=== PATIENT | female | born 1995 | race Caucasian/White ===

== ENCOUNTER 2017-02-27 00:50 | Emergency (ER) | payer MEDICAID ==
--- NOTE | 2017-02-27 01:36 | PD ---
HPI Chief Complaint Contractions Date Seen: February 27, 2017 Travel History International Travel<30 Days: No Contact w/Intl Traveler<30Days: No Known Affected Area: No History of Present Illness HPI This patient is 22-year-old white female at 39 weeks presents complaining of contractions, denies bleeding or ruptured membranes. Baby is active. heart tracing is reactive she is vito every 2-[address] Yancey for care. Para: 1 : 2 History Past Medical History Narrative Medical Asthma Obstetric History Obstetric History Patient was induced with her last baby for PIH and had to push for 3 hours but she did deliver Social History Alcohol Use: No Tobacco Use: No Substance Abuse: No Review of Systems General / Constitutional: No: Fever, Weight Gain, Chills, Other Eyes: No: Diploplia, Blurred Vision, Visual changes, Pain, Photophobia HENT: No: Headaches, Vertigo, Lightheadedness Cardiovascular: No: Irregular Rhythm, Chest Pain or Discomfort, Palpitations, Tachycardia, Syncope, Varicosities, Edema, Cyanosis Respiratory: No: Cough, Short of Breath, Other Gastrointestinal: No: Nausea, Vomiting, Diarrhea Genitourinary: No: Decreased Urinary Output, Oliguria Musculoskeletal: No: Limited ROM, Weakness, Cramping, Edema, Pain Skin: No Rash, No Itching, No Dryness, No Lumps, No Change in Pigmentation, No Change in Nails, No Alopecia, No Lesions Neurologic: No: Weakness, Dizziness, Syncope, Focal Abnormalities, Coordination Problem, Headache, Slurred Speech, Seizures Psychiatric: No: Depression, Suicidal Ideations, Homicidal Ideation Endocrine: No: Heat Intolerance, Cold Intolerance, Polydipsia, Polyuria, Other Physical Exam Narrative GENERAL: Well-nourished, well-developed patient. SKIN: Warm and dry. HEAD: Normocephalic and atraumatic. EYES: No scleral icterus. No injection or drainage. ENT: No nasal drainage noted. Mucous membranes pink. Airway patent. NECK: Supple, trachea midline. No JVD. CARDIOVASCULAR: Regular rate and rhythm without murmurs, gallops, or rubs. RESPIRATORY: Breath sounds equal bilaterally. No accessory muscle use. BREASTS: Bilateral exam showed no masses , no retractions, no nipple discharge. ABDOMEN/GI: Abdomen soft, non-tender, bowel sounds present, no rebound, no guarding Gravid to [39-] weeks size Fundal Height: [39-] GENITOURINARY: External Genitalia: intact and normal in appearance BUS glands: [-] Cervix: [-] Dilatation: [3-] Effacement: [50-] Station: [-2] Presentation: [-vtx] Membranes: [intact ] Uterine Contractions: [q 3 min-] FHT's: Category: [1-] Baseline: [-144] Reactive: [-yes] Variability: [-mod] Decels: [none-] EXTREMITIES: No cyanosis or edema. BACK: Nontender without obvious deformity. No CVA tenderness. NEUROLOGICAL: Awake and alert. Motor and sensory grossly within normal limits. Five out of 5 muscle strength in all muscle groups. Normal speech. MDM Interpretation(s) This patient is 22-year-old white female at 39 weeks presents complaining contractions. She denies bleeding or ruptured membranes. heart rate tracing is reactive and she is vito every 3 minutes. Patient states she was in the office 4 days ago was 3 cm at that time. Denies she is still 3 cm 50 % efface and -2 vertex presentation so apparently no significant cervical change with these contractions so far Plan Plan the patient IM pain medication and vertigo home to rest and return when and if these contractions worsen. Or for water breaks or any bleeding of significance occurs Diagnosis Diagnosis: Primary Impression: False labor after 37 weeks of gestation without delivery Disposition: 01 DISCHARGE HOME Condition: Stable Neal Jo II, MD February 27, 2017 01:36
== END 2017-02-27 02:10 | disposition home or self-care (01) ==
LOC: HOBED 00:50
DX: O47.9 False labor, unspecified (principal); Z3A.37 37 weeks gestation of pregnancy
CPT/HCPCS: 96372; J3010

== ENCOUNTER 2017-02-28 10:55 | Inpatient (IN) | payer MEDICAID ==
[2017-02-28] VITALS (101 sets, daily range): BP systolic 60–158; BP diastolic 20–115; PULSE 74–171; RESP 17–18; TEMP 97.4–98.3; O2SAT 99–100
[2017-02-28] MEDS ORDERED: LACTATED RINGER'S 1000 ML INJ 1,000 ML IV PRN (11:23)
[2017-02-28] MEDS ORDERED: LIDOCAINE HCL 1% 50 ML VIAL INFIL PRN (11:30)
[2017-02-28] MEDS ORDERED: SODIUM CHLORID 0.9% 500 ML INJ 500 ML IV PRN (11:30)
[2017-02-28] MEDS ORDERED: LIDOCAINE HCL 1% 50 ML VIAL I-DERMAL PRN (11:30)
[2017-02-28] MEDS ORDERED: MINERAL OIL 10 ML VIAL TOPICAL PRN (11:30)
[2017-02-28] MEDS ORDERED: CITRIC ACID-SODIUM CITRATE LIQ 30 ML UDC PO SCH ×2 (11:30→19:45)
[2017-02-28] MEDS ORDERED: OXYTOCIN 30 UNITS-500ML PREMIX 500 ML IV SCH (11:30)
[2017-02-28] MEDS ORDERED: OXYTOCIN 30 UNITS-500ML PREMIX 500 ML IV ONE ×2 (11:30→20:45)
[2017-02-28] MEDS ORDERED: ONDANSETRON HCL 4 MG/2 ML VIAL IV PRN (11:30)
[2017-02-28] MEDS ORDERED: SODIUM CHLOR 0.9% 1000 ML INJ 1,000 ML IV PRN (11:43)
--- NOTE | 2017-02-28 11:47 | HHI.HP ---
HPI Chief Complaint contractions Date Seen: February 28, 2017 Travel History International Travel<30 Days: No Contact w/Intl Traveler<30Days: No Known Affected Area: No History of Present Illness HPI 22 yo with iup at 39w5d presented to [facility]te visit with c/o regular contractions q 5 min and pelvic pressure. She was evaluated in triage yesterday morning and was 3-4cm dilated. She is feeling good movement, no vb/lof. course c/b Asthma, she has had good control during the h/o pre-eclampsia with G1, normal BP during pnc h/o petit mal seizure, no medications or episodes in over 3 years; declined neuro referral. 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 No further episodes in last 3 years. Obstetric History Obstetric History G1 FTSVD M, 41 wks, 7lb8oz c/b Pre-eclampsia G2 current Past Surgical History Narrative Surgical wisdom tooth extraction Family History Family History: Negative Social History Alcohol Use: No Tobacco Use: No Substance Abuse: No Allergies-Medications (Allergen,Severity, Reaction): Coded Allergies: Amoxicillin (Verified Allergy, Mild, RASH, 02/27/17) Aspirin (Verified Allergy, Mild, RASH, 02/27/17) Tylenol (Verified Allergy, Mild, RASH, 02/27/17) Uncoded Allergies: NYQUIL (Allergy, Mild, RASH, 02/27/17) Review of Systems General / Constitutional: No: Fever, Weight Gain, Chills, Other Eyes: No: Diploplia, Blurred Vision, Visual changes, Pain, Photophobia HENT: No: Headaches, Vertigo, Lightheadedness Cardiovascular: No: Irregular Rhythm, Chest Pain or Discomfort, Palpitations, Tachycardia, Syncope, Varicosities, Edema, Cyanosis Respiratory: No: Cough, Short of Breath, Other Gastrointestinal: No: Nausea, Vomiting, Diarrhea Genitourinary: No: Decreased Urinary Output, Oliguria Musculoskeletal: No: Limited ROM, Weakness, Cramping, Edema, Pain Skin: No Rash, No Itching, No Dryness, No Lumps, No Change in Pigmentation, No Change in Nails, No Alopecia, No Lesions Neurologic: No: Weakness, Dizziness, Syncope, Focal Abnormalities, Coordination Problem, Headache, Slurred Speech Psychiatric: No: Depression, Suicidal Ideations, Homicidal Ideation Endocrine: No: Heat Intolerance, Cold Intolerance, Polydipsia, Polyuria, Other Physical Exam Narrative GENERAL: Well-nourished, well-developed patient. SKIN: Warm and dry. HEAD: Normocephalic and atraumatic. EYES: No scleral icterus. No injection or drainage. ENT: No nasal drainage noted. Mucous membranes pink. Airway patent. NECK: Supple, trachea midline. No JVD. CARDIOVASCULAR: Regular rate and rhythm without murmurs, gallops, or rubs. RESPIRATORY: Breath sounds equal bilaterally. No accessory muscle use. ABDOMEN/GI: Abdomen soft, non-tender, bowel sounds present, no rebound, no guarding Gravid to40 weeks size GENITOURINARY: External Genitalia: intact and normal in appearance BUS glands: [-] Cervix: 5/50/-2, post, soft Presentation:ceph Membranes: [intact Uterine Contractions:3-5 min FHT's:nst pending EXTREMITIES: No cyanosis or edema. BACK: Nontender without obvious deformity. No CVA tenderness. NEUROLOGICAL: Awake and alert. Motor and sensory grossly within normal limits. Five out of 5 muscle strength in all muscle groups. Normal speech. Data Data Vital Signs Reviewed: Yes Orders Admit To Inpatient (02/28/17 ) Vital Signs (Adult) .Per protocol (02/28/17 11:23) Heart (02/28/17 11:23) Amnioinfusion (02/28/17 11:23) Urinary Catheter Management .ONCE (02/28/17 11:23) Diet Npo (02/28/17 Lunch) Lactated Ringer's 1000 Ml Inj (Lr 1000 M (02/28/17 11:23) Lactated Ringer's 1000 Ml Inj (Lr 1000 M (02/28/17 11:23) Sodium Chlorid 0.9% 500 Ml Inj (Ns 500 M (02/28/17 11:30) Sodium Chlor 0.9% 1000 Ml Inj (Ns 1000 M (02/28/17 11:43) Lidocaine 1% Inj (50 Ml) (Xylocaine 1% I (02/28/17 11:30) Citric Acid-Sodium Citrate Liq (Bicitra (02/28/17 11:30) Ondansetron Inj (Zofran Inj) (02/28/17 11:30) Fentanyl Inj (Fentanyl Inj) (02/28/17 11:30) Fentanyl Inj (Fentanyl Inj) (02/28/17:30) Complete Blood Count With Diff (02/28/17:) Hold Clot (02/28/17:) Abo/Rh Blood Type (02/28/17:) Urinalysis - C+S If Indicated (02/28/17:) Resp Oxygen Non Rebreathe Mask (02/28/17 ) ^ Epidural / Intrathecal Infus (02/28/17:) Oxytocin 30 Units-500ml Premix (Pitocin (02/28/17) Lidocaine 1% Inj (50 Ml) (Xylocaine 1% I (02/28/17) Light Mineral Oil (Muri-Lube Oil) (02/28/17:) ^ Non Stress Test (02/28/17) Response To Medication .Post New Med Administration, Reaction (02/28/17) ^ Discontinue Medication (02/28/17) Oxytocin 30 Units-500ml Premix (Pitocin (02/28/17:30) Inpatient Certification (02/28/17 ) Specimen To Be Collected PRN (02/28/17:) Assessment/Plan Problem List: (1) Labor and delivery, indication for care (2) Asthma (3) Petit-mal epilepsy Assessment and Plan 22 yo with iup at 39w5d admitted in labor 1) Labor- will arom and give pitocin as needed. 2) Asthma- mild intermittent, well controlled during 3) h/o pre-eclampsia with G1- normal BP during pnc, baseline PIH labs normal 4) h/o petit mal seizure- no medications or episodes in over 3 years; declined neuro referral. 5) GBS negative 6) Fetus - cephalic, male, growth u/s at 36 wk wt 6#8oz (72%ile) Discharge Planning home on ppd 2 Diane Yancey MD February 28, 2017 11:47 Diane Yancey MD February 28, 2017 11:47
[2017-02-28 12:03] LABS: BLOOD, URINE TRACE (NEG); COMMENT (UR) CULT NOT INDICATED; CULTURE IF INDICATED CULT NOT INDICATED; GLUCOSE,URINE NEG (NEG); KETONE, URINE NEG (NEG); MUCUS URINE FEW /lpf (OCC); NITRITE,URINE NEG (NEG); PH, URINE 6.5 (5.0-8.5); SQUAMOUS EPITHELIAL CELL URINE 3 /hpf (0-5); URINE COLOR YELLOW (YELLW/STRAW)
[2017-02-28 12:06] LABS: AUTOMATED NEUTROPHIL # 5.2 TH/MM3 (1.8-7.7); BASOPHIL % 0.6 % (0.0-2.0); EOSINOPHIL # 0.1 TH/MM3 (0-0.4); EOSINOPHIL % 0.7 % (0.0-4.0); HEMATOCRIT 28.8 % (35.0-46.0); LYMPH % 20.3 % (9.0-44.0); LYMPHOCYTE # 1.5 TH/MM3 (1.0-4.8); MEAN CELL VOLUME 71.4 FL (80.0-100.0); MEAN CORPUSCULAR HEMOGLOBIN 22.9 PG (27.0-34.0); MEAN CORPUSCULAR HGB CONC 32.1 % (32.0-36.0); MONO % 7.2 % (0.0-8.0); NEUT % 71.2 % (16.0-70.0); PLATELET COUNT 191 TH/MM3 (150-450); RED BLOOD COUNT 4.03 MIL/MM3 (4.00-5.30); RED CELL DISTRIBUTION WIDTH 17.9 % (11.6-17.2); WHITE BLOOD COUNT 7.3 TH/MM3 (4.0-11.0)
[2017-02-28 12:07] LABS: HEMO FLAGS AUTO DIFF
[2017-02-28] MEDS: LACTATED RINGER'S 1000 ML INJ 1,000 ML IV SCH ×2 (12:25→14:47)
[2017-02-28 12:49] LABS: OVALOCYTES 1+ (NORMAL); SCAN/DIFF AUTO DIFF CONFIRMED
[2017-02-28] MEDS ORDERED: fentaNYL 2MCG-BUPIV 0.125% INJ 100 ML ONE (14:28)
[2017-02-28] MEDS ORDERED: ePHEDrine/NS 25 MG/5 ML SYR ONE ×2 (15:21→16:00)
[2017-02-28] MEDS ORDERED: NO SYSTEM NARCOTICS PRN (17:45)
[2017-02-28] MEDS ORDERED: DO NOT ADMINISTER ANTICOAGULANTS PRN (17:45)
[2017-02-28] MEDS ORDERED: fentaNYL 2MCG-BUPIV 0.125% 100 ML EPIDURAL SCH (17:45)
[2017-02-28] MEDS ORDERED: ePHEDrine/NS 25 MG/5 ML SYR IV PRN (17:45)
[2017-02-28] MEDS ORDERED: ceFAZolin INJ 1,000 MG VIAL ONE (19:32)
[2017-02-28] MEDS ORDERED: OXYTOCIN 10 UNIT/ML AMP ONE (19:42)
[2017-02-28] MEDS ORDERED: ceFAZolin 2 GM PREMIX 50 ML IV SCH (19:45)
[2017-02-28 19:59] LABS: BLOOD GAS BASE EXCESS -9.3 mmol/L (-2-2); BLOOD GAS O2 HGB SATURATION 4 % (90-100); CORD BLOOD GAS HCO3 19 mmol/L (21-29); CORD BLOOD GAS PCO2 63 mmHG (34-78); CORD BLOOD GAS PO2 7 mmHG (3.0-40.0); DRAW SITE CORD BLOOD; STAT NO
[2017-02-28] MEDS ORDERED: LACTATED RINGER'S 1000 ML INJ 1,000 ML IV SCH (20:00)
--- NOTE | 2017-02-28 20:31 | PD.OB.DELI ---
Procedure Note Section Procedure Performed by Leon Pedersen Procedure: Primary Low Transverse Sec Indication for delivery: Nonreassuring heart tracing (persistant bradycardia), malposition (OP, failed attempt of vaginal delivery with kiwi vacuum, 4 pulls,no desent, x1 pop off) Informed consent obtained: For anesthesia, For procedure Confirmed correct: Patient, Procedure, Site, Time-out taken Anesthesia: Epidural Medication prior to procedure: As documented in eMAR Monitoring during procedure: Blood pressure monitoring, front desk monitor, doppler, Pulse oximetry Urinary catheter: Inserted using sterile technique, To dependent drainage Sterile preparation: Duraprep Position: Supine with safety belt applied Operative Features Skin Incision: Pfannenstiel Uterine Incision: Low transverse w/knife / scissors Membranes Ruptured: Previously Presentation: Occiput posterior Delivery of infant: Uneventful : Male One Minute : 7 Five Minute : 8 Weight: 7# 11oz Status of : Viable, Cord blood, Umbilical cord, Nursery present Placenta delivered: Intact, Sent to pathology Medications: Antibiotics, Oxytocin Estimated blood loss: 800cc Procedure tolerated: Well Maternal Condition: Stable Condition: Stable Leon Pedersen MD February 28, 2017 20:31
[2017-02-28] MEDS ORDERED: MORPHINE SULFATE PF 5 MG/10 ML VIAL ONE (20:37)
[2017-02-28] MEDS ORDERED: oxyCODONE/ACETAMINOPHEN 5 MG/325 MG TAB PO PRN (20:45)
[2017-02-28] MEDS ORDERED: KETOROLAC TROMETHAMINE 60 MG/2 ML (IM) VIAL IM PRN (20:45)
[2017-02-28] MEDS ORDERED: SIMETHICONE 80 MG CHEWABLE TAB PO PRN (20:45)
[2017-02-28] MEDS ORDERED: SODIUM CHLORIDE 0.9% FLUSH 10 ML FLUSH IV FLUSH PRN (20:45)
[2017-02-28] MEDS ORDERED: ONDANSETRON HCL 4 MG/2 ML VIAL IV PUSH PRN (20:45)
[2017-02-28] MEDS: SODIUM CHLORIDE 0.9% FLUSH 10 ML FLUSH IV FLUSH SCH (21:00)
[2017-02-28] MEDS ORDERED: OXYTOCIN 30 UNITS-500ML PREMIX 500 ML ONE (21:24)
[2017-02-28] MEDS: CLINDAMYCIN INJ 600 MG in SODIUM CHLORIDE 0.9% INJ 100 ML IV SCH (22:45)
[2017-02-28] MEDS ORDERED: EPIDURAL-DO NOT ADMINISTER ANTICOAGULANTS PRN (23:00)
[2017-02-28] MEDS ORDERED: EPIDURAL-NALOXONE HCL 0.4 MG/ML AMP IV PRN (23:00)
[2017-02-28] MEDS ORDERED: EPIDURAL-DIPHENHYDRAMINE HCL 50 MG/ML VIAL IV PUSH PRN (23:00)
[2017-02-28] MEDS ORDERED: EPIDURAL-DIPHENHYDRAMINE HCL 50 MG CAP PO PRN (23:00)
[2017-02-28] MEDS ORDERED: EPIDURAL-NO SYSTEMIC NARCOTICS PRN (23:00)
[2017-03-01] MEDS ORDERED: LACTATED RINGER'S 1000 ML INJ 1,000 ML IV SCH (01:32)
[2017-03-01] MEDS: CLINDAMYCIN INJ 600 MG in SODIUM CHLORIDE 0.9% INJ 100 ML IV SCH (04:39)
[2017-03-01] MEDS ORDERED: OXYTOCIN 30 UNITS-500ML PREMIX 500 ML IV PRN (06:45)
[2017-03-01 07:00] LABS: BASOPHIL % 0.4 % (0.0-2.0); EOSINOPHIL % 0.2 % (0.0-4.0); LYMPH % 13.9 % (9.0-44.0); LYMPHOCYTE # 0.9 TH/MM3 (1.0-4.8); MEAN CORPUSCULAR HGB CONC 30.2 % (32.0-36.0); MONO % 7.7 % (0.0-8.0); NEUT % 77.8 % (16.0-70.0); PLATELET COUNT 119 TH/MM3 (150-450); RED BLOOD COUNT 2.87 MIL/MM3 (4.00-5.30); RED CELL DISTRIBUTION WIDTH 17.9 % (11.6-17.2); WHITE BLOOD COUNT 6.5 TH/MM3 (4.0-11.0)
[2017-03-01 07:07] LABS: HEMO FLAGS AUTO DIFF
--- NOTE | 2017-03-01 08:51 | HHI.OB ---
Subjective Post Operative Day: 1 Remarks no dizziness when ambulating HT=21 Objective Vitals/I&O Vital Signs Date Time Temp Pulse Resp B/P Pulse Ox O2 Delivery O2 Flow Rate FiO2 02/28/17 21:30 100 02/28/17 21:30 102 18 02/28/17 21:30 104/55 02/28/17 21:15 18 02/28/17 21:15 100 02/28/17 21:15 97.8 02/28/17 21:15 100 110/53 02/28/17 21:00 101/57 02/28/17 21:00 103 18 02/28/17 21:00 100 02/28/17 20:45 99 02/28/17 20:44 18 02/28/17 20:44 117 02/28/17 20:43 106/52 02/28/17 20:30 98.3 02/28/17 20:30 101 18 116/57 02/28/17 20:30 99 02/28/17 19:26 148 119/66 02/28/17 19:25 129 02/28/17 19:21 168 113/96 02/28/17 19:20 134 02/28/17 19:16 139 132/112 02/28/17 19:11 128 115/75 02/28/17 19:06 115 116/52 02/28/17 19:05 119 02/28/17 19:00 108 111/77 02/28/17 19:00 110 02/28/17 18:55 100 118/68 02/28/17 18:55 103 02/28/17 18:51 104 114/71 02/28/17 18:50 102 02/28/17 18:45 171 02/28/17 18:45 130 131/115 02/28/17 18:40 99 110/83 02/28/17 18:40 99 02/28/17 18:35 113 02/28/17 18:35 105 114/75 02/28/17 18:30 99 02/28/17 18:30 98 115/63 02/28/17 18:25 97 107/65 02/28/17 18:25 97 02/28/17 18:20 94 02/28/17 18:20 102 106/71 02/28/17 18:19 18 02/28/17 18:16 97 110/65 02/28/17 18:15 98 02/28/17 18:15 100 02/28/17 18:13 91 117/69 02/28/17 18:11 107 87/49 02/28/17 18:10 99 02/28/17 18:06 99 105/54 02/28/17 18:05 103 02/28/17 18:00 104 120/81 02/28/17 18:00 100 02/28/17 17:59 99 126/75 02/28/17 17:55 97 130/76 02/28/17 17:55 95 02/28/17 17:51 122/74 02/28/17 17:51 99 02/28/17 17:50 111 02/28/17 17:46 112/62 02/28/17 17:46 95 02/28/17 17:45 98 02/28/17 17:41 83 111/56 02/28/17 17:40 90 02/28/17 17:35 81 02/28/17 17:35 96 102/68 02/28/17 17:31 85 104/57 02/28/17 17:30 111 02/28/17 17:26 18 02/28/17 17:25 104 02/28/17 17:25 101 119/73 02/28/17 17:20 93 02/28/17 17:20 100 118/76 02/28/17 17:15 103 122/79 02/28/17 17:15 108 02/28/17 17:14 97 120/74 02/28/17 17:10 98 02/28/17 17:10 101 126/80 02/28/17 17:05 102 02/28/17 17:05 105 122/86 02/28/17 17:00 110 121/71 02/28/17 17:00 101 02/28/17 16:55 104 126/70 02/28/17 16:55 99 02/28/17 16:50 87 135/71 02/28/17 16:50 122 02/28/17 16:45 105 123/63 02/28/17 16:45 107 02/28/17 16:40 124 02/28/17 16:40 110 114/59 02/28/17 16:35 125 02/28/17 16:35 128 120/63 02/28/17 16:30 145 02/28/17 16:30 97.6 110 125/88 02/28/17 16:25 101 124/89 02/28/17 16:25 129 02/28/17 16:20 109 123/77 02/28/17 16:20 99 02/28/17 16:19 18 02/28/17 16:15 95 118/73 02/28/17 16:15 82 02/28/17 16:10 91 02/28/17 16:10 100 124/70 02/28/17 16:05 87 112/70 02/28/17 16:05 90 02/28/17 16:00 93 112/60 02/28/17 16:00 92 02/28/17 15:55 102/57 02/28/17 15:55 92 02/28/17 15:55 88 02/28/17 15:50 92 02/28/17 15:50 96 02/28/17 15:50 106/58 02/28/17 15:48 98/54 02/28/17 15:48 93 02/28/17 15:46 99/52 02/28/17 15:46 86 02/28/17 15:45 85 02/28/17 15:45 91 100/52 02/28/17 15:44 17 02/28/17 15:43 87 100/54 02/28/17 15:41 87 99/50 02/28/17 15:40 88 02/28/17 15:40 86 98/56 02/28/17 15:38 98 94/57 02/28/17 15:37 85 85/38 02/28/17 15:36 90 60/20 02/28/17 15:35 82 02/28/17 15:30 86 117/64 02/28/17 15:30 84 02/28/17 15:26 80 102/59 02/28/17 15:25 80 02/28/17 15:25 81 101/55 02/28/17 15:24 80 102/62 02/28/17 15:22 81 97/50 02/28/17 15:21 74 102/34 02/28/17 15:20 82 02/28/17 15:15 107 02/28/17 15:15 17 02/28/17 15:15 97.4 107 118/66 02/28/17 15:11 90 145/86 02/28/17 15:10 100 02/28/17 15:10 91 115/98 02/28/17 15:06 96 158/81 02/28/17 15:05 97 02/28/17 15:00 91 138/102 02/28/17 15:00 89 02/28/17 15:00 17 02/28/17 14:55 89 134/97 02/28/17 14:55 83 02/28/17 14:53 85 133/95 02/28/17 14:50 93 146/101 02/28/17 13:55 18 02/28/17 13:53 89 119/78 02/28/17 13:01 97.6 17 02/28/17 13:00 77 100/86 02/28/17 11:30 98.3 17 02/28/17 11:27 96 124/79 Result Diagram: 03/01/17 0606 Objective Remarks GENERAL: Well-nourished, well-developed patient. CARDIOVASCULAR: Regular rate and rhythm without murmurs, gallops, or rubs. RESPIRATORY: Breath sounds equal bilaterally. No accessory muscle use. ABDOMEN/GI: Abdomen soft, non-tender, bowel sounds present. Incision: dressing Clean, dry and intact. Fundus: Firm, non-tender at umbilicus. GENITOURINARY: Light to moderate bleeding. EXTREMITIES: No cyanosis or edema, non-tender, without signs of DVT. Medications and IVs Current Medications Medications (Trade) Dose Ordered Sig/Nomi Route Start Time Stop Time Status Last Admin (NS 500 ml Inj) 500 ml @ 1,000 mls/hr ONCE PRN IV 02/28/17 11:30 03/02/17 11:29 (Zofran Inj) 4 mg Q6H PRN IV 02/28/17 11:30 (fentaNYL INJ) 50 mcg Q1H PRN IV PUSH 02/28/17 11:30 (fentaNYL INJ) 100 mcg Q1H PRN IV PUSH 02/28/17 11:30 Mineral Oil 10 ml 10 ml UNSCH PRN TOPICAL 02/28/17 11:30 (Pitocin 30 Units-NS 500 ml Premix) 500 ml @ 0 mls/hr TITRATE IV 02/28/17 11:30 02/28/17 12:27 Miscellaneous Information No systemic narcotics to be given except... UNSCH PRN .XX 02/28/17 17:45 03/01/17 17:44 Miscellaneous Information DO NOT ADMINISTER ANY ANTICOAGUL... UNSCH PRN .XX 02/28/17 17:45 03/01/17 17:44 (fentaNYL 2MCG-BUPIV 0.125% INJ) 100 ml @ 0 mls/hr TITRATE EPIDURAL 02/28/17 17:45 Ephedrine Sulfate 10 mg 10 mg UNSCH PRN IV 02/28/17 17:45 03/01/17 17:44 (Lr 1000 ml Inj) 1,000 ml @ 100 mls/hr Q10H IV 03/01/17 01:32 03/01/17 21:31 (NS Flush) 2 ml BID IV FLUSH 02/28/17 21:00 (NS Flush) 2 ml UNSCH PRN IV FLUSH 02/28/17 20:45 (Mylicon Chew) 80 mg QID PRN PO 02/28/17 20:45 (Motrin) 600 mg Q6H PRN PO 02/28/17 20:45 (Toradol Inj) 30 mg Q6H PRN IM 02/28/17 20:45 03/01/17 20:44 (Percocet 5-325 Mg) 1 tab Q4H PRN PO 02/28/17 20:45 (Percocet 5-325 Mg) 2 tab Q4H PRN PO 02/28/17 20:45 (Ally-Colace) 2 tab Q12H PRN PO 02/28/17 20:45 (M-M-R Ii Inj) 0.5 ml ONCE ONCE SQ 03/01/17 16:00 03/01/17 16:01 (Boostrix Inj) 0.5 ml ONCE ONCE IM 03/01/17 16:00 03/01/17 16:01 (Zofran Inj) 4 mg Q6H PRN IV PUSH 02/28/17 20:45 Miscellaneous Information NO SYSTEMIC NARCOTICS TO BE GIVEN FO... UNSCH PRN .XX 02/28/17 23:00 03/01/17 22:59 (Narcan Inj) 0.4 mg UNSCH PRN IV 02/28/17 23:00 03/01/17 22:59 (Benadryl Inj) 25 mg Q6H PRN IV PUSH 02/28/17 23:00 03/01/17 22:59 (Benadryl) 50 mg Q6H PRN PO 02/28/17 23:00 03/01/17 22:59 Miscellaneous Information ALL NURSING DEPARTMENTS UNSCH PRN .XX 02/28/17 23:00 03/01/17 22:59 Assessment/Plan Problem List: (1) Labor and delivery, indication for care (2) Asthma (3) Petit-mal epilepsy (4) delivery delivered Assessment and Plan s/p primary LSTC, POD #1, Ht=21 asymptomatic h/o asthma, seizure(none in 3 yrs), pre-ecl with first born iron supp. ) Discharge Planning home on pod 3 Attending Attestation pt seen by Heaven Jimenez MD March 01, 2017 08:51
[2017-03-01 08:54] LABS: BANDS 21 % (0-6); EOSINOPHILS 1 % (0-4); PLATELET ESTIMATE SMEAR LOW (NORMAL); PLATELET MORPHOLOGY NORMAL (NORMAL); POLYS (SEG NEUTROPHILS) 56 % (16-70); SCAN/DIFF FINAL DIFF MANUAL; WBC DIFF SAMPLE 100
[2017-03-01] MEDS: POLYSACCHARIDE IRON COMPLEX 150 MG CAP PO SCH ×2 (09:42→22:10)
[2017-03-01 15:00] VITALS: TEMP 98.9
[2017-03-01] MEDS ORDERED: DIPHTH/TETANUS/ACEL PERTUSSIS (BOOSTER) 0.5 ML VIAL/PFS IM ONE (16:00)
[2017-03-01] MEDS ORDERED: MEASLES, MUMPS, RUBELLA VACCINE 0.5 ML VIAL SQ ONE (16:00)
[2017-03-01] MEDS: IBUPROFEN 600 MG TAB PO PRN (19:32)
[2017-03-01 20:00] VITALS: BP 115/66; PULSE 107; RESP 17; TEMP 99.3; O2SAT 100
[2017-03-01] MEDS: oxyCODONE/ACETAMINOPHEN 5 MG/325 MG TAB PO PRN (22:10)
[2017-03-01] MEDS: DOCUSATE SODIUM 50 MG/SENNA 8.6 MG TAB PO PRN (22:10)
[2017-03-02] MEDS: IBUPROFEN 600 MG TAB PO PRN ×4 (01:36→20:00)
[2017-03-02] MEDS: oxyCODONE/ACETAMINOPHEN 5 MG/325 MG TAB PO PRN ×3 (03:10→13:45)
[2017-03-02] MEDS: POLYSACCHARIDE IRON COMPLEX 150 MG CAP PO SCH ×2 (07:55→21:00)
--- NOTE | 2017-03-02 07:57 | HHI.OB ---
Subjective Post Operative Day: 1 Remarks Doing well No dizziness, SOB, or chest pain Pain is well controlled baby is good..circ done Objective Vitals/I&O Vital Signs Date Time Temp Pulse Resp B/P Pulse Ox O2 Delivery O2 Flow Rate FiO2 03/01/17 23:10 18 03/01/17 20:32 18 03/01/17 20:00 99.3 100 03/01/17 20:00 107 17 115/66 03/01/17 15:00 98.9 Result Diagram: 03/01/17 0606 Objective Remarks GENERAL: Well-nourished, well-developed patient. CARDIOVASCULAR: Regular rate and rhythm without murmurs, gallops, or rubs. RESPIRATORY: Breath sounds equal bilaterally. No accessory muscle use. ABDOMEN/GI: Abdomen soft, non-tender, bowel sounds present. Incision: dressing Clean, dry and intact. Fundus: Firm, non-tender at umbilicus. GENITOURINARY: Light to moderate bleeding. EXTREMITIES: No cyanosis or edema, non-tender, without signs of DVT. Medications and IVs Current Medications Medications (Trade) Dose Ordered Sig/Nomi Route Start Time Stop Time Status Last Admin (NS 500 ml Inj) 500 ml @ 1,000 mls/hr ONCE PRN IV 02/28/17 11:30 03/02/17 11:29 (Zofran Inj) 4 mg Q6H PRN IV 02/28/17 11:30 (fentaNYL INJ) 50 mcg Q1H PRN IV PUSH 02/28/17 11:30 (fentaNYL INJ) 100 mcg Q1H PRN IV PUSH 02/28/17 11:30 Mineral Oil 10 ml 10 ml UNSCH PRN TOPICAL 02/28/17 11:30 Oxytocin 500 ml @ 0 mls/hr TITRATE IV 02/28/17 11:30 02/28/17 12:27 (fentaNYL 2MCG-BUPIV 0.125% INJ) 100 ml @ 0 mls/hr TITRATE EPIDURAL 02/28/17 17:45 (NS Flush) 2 ml BID IV FLUSH 02/28/17 21:00 (NS Flush) 2 ml UNSCH PRN IV FLUSH 02/28/17 20:45 (Mylicon Chew) 80 mg QID PRN PO 02/28/17 20:45 (Motrin) 600 mg Q6H PRN PO 02/28/17 20:45 03/02/17 01:36 (Percocet 5-325 Mg) 1 tab Q4H PRN PO 02/28/17 20:45 03/02/17 03:10 (Percocet 5-325 Mg) 2 tab Q4H PRN PO 02/28/17 20:45 (Ally-Colace) 2 tab Q12H PRN PO 02/28/17 20:45 03/01/17 22:10 (Zofran Inj) 4 mg Q6H PRN IV PUSH 02/28/17 20:45 (Nu-Iron) 150 mg Q12HR PO 03/01/17 09:00 03/01/17 22:10 Assessment/Plan Problem List: (1) Labor and delivery, indication for care (2) Asthma (3) Petit-mal epilepsy (4) delivery delivered Assessment and Plan POD #2 Severe anemia consider venofer Plan to d/c home tomorrow. Discharge Planning home on pod 3 Elizabeth Goldberg MD March 02, 2017 07:57
[2017-03-02 08:00] VITALS: BP 100/55; PULSE 95; RESP 18; TEMP 98.2; O2SAT 99
--- NOTE | 2017-03-02 08:58 | MP ---
cc: LEON HURTADO DATE OF SURGERY 02/28/2017 PREOPERATIVE DIAGNOSIS Term intrauterine with cephalopelvic disproportion and non-reassuring heart rate tracing, persistent bradycardia. PROCEDURE Primary low transverse section delivery of viable male . POSTOPERATIVE DIAGNOSIS Term intrauterine with cephalopelvic disproportion and non-reassuring heart rate tracing, persistent bradycardia. SURGEON Leon Hurtado MD ANESTHESIA Epidural reinforcement. ESTIMATED BLOOD LOSS 800 cc DRAINS Silveira to gravity OPERATIVE FINDINGS Male from occiput posterior position, nuchal cord x1 which was loose, meconium-stained amniotic fluid previously was clear upon artificial rupture at 12:30. 's were 7 at one minute and 8 at five. Cord blood gas is pending. Placenta was sent for pathology. INDICATION FOR THE PROCEDURE The patient presented with augmentation of labor. The patient progressed to be completely dilated with episodic bradycardia. The patient was able to tolerate application of a vacuum extractor for expedited delivery due to non-reassuring heart rate tracing. Several attempts were placed using the [employer] vacuum extractor four attempts with one pop off and no descent. Recommendation after that was to proceed with operative delivery by section. The patient was stable. heart rate tracing remained in the bradycardic episode in the 90s. DESCRIPTION OF PROCEDURE The patient was taken to the operative suite with reinforced epidural which was working for pain management. The patient was alert and oriented with no complaints of pain. She was prepped and draped. Silveira was inserted by sterile technique and the patient had a Pfannenstiel incision utilized taking above the pubic symphysis in a slightly elliptical fashion. The incision was carried through the skin and the subcutaneous layer identifying the fascia and then scoring the fascia sharply and then extending it laterally. A combination of sharp dissection and blunt dissection was used to separate the rectus fascia from the muscle. The muscle was in the midline, peritoneum was identified and opened sharply. The incision was extended. A bladder blade was placed over the pubic symphysis. A transverse incision was made in the lower uterine segment allowing the peritoneum to fall away and then be placed under the bladder flap and bladder blade. The incision was made in the lower uterine segment. Lightly stained amniotic fluid was noted. The incision was extended. Retractors were removed and then the infant vertex was delivered through the abdominal incision without difficulty. Nuchal cord was reduced. The was delivered in total with moderate tone and grimacing. The cord was doubly clamped and cut and was taken isolette by the nursery staff present. Cord segment was and sent for cord blood gas assessment and then a cord sample was obtained for typing. Placenta was removed intact. Trailing membranes were removed. This placenta was then sent for pathologic review. The uterus was explored. There was no retained tissue. It was vito nicely. The incision was closed with a double layer first as a running locking suture of 0 Monocryl followed by second imbricating suture of 0 Monocryl. This was reinforced with a second layer with an imbricating suture of 0 Monocryl. The pelvis was irrigated. Any free blood and clot was removed. Examination of the lower uterine segment proved slightly wet. Compression revealed a small amount of ooze. Samson powder was placed over the space between the bladder and the lower uterine segment and then compression was applied. This contained bleeding. Hemostasis was acquired and the peritoneum was then closed with a running suture of 2-0 Monocryl after a full count was made and correct. The muscle bellies were reapproximated with interrupted suture of 2-0 Monocryl and then the fascia was closed with 0 Vicryl in a simple running fashion with good result. The subcutaneous layer was irrigated. Any small bleeders were cauterized and the space was reapproximated with a running suture of 2-0 Monocryl. Walter were used to close the skin edge. Dressing was applied. There is no hematoma. No active bleeding. The patient was stable throughout. The was doing well in the regular nursery. MD FELISA Urban/GRACE /8:38 PM /8:43 AM
[2017-03-02 09:00] VITALS: BP 100/55; PULSE 95; RESP 18; TEMP 98.2
--- NOTE | 2017-03-02 10:03 | HHI.DCPOC ---
Discharge Care Plan Diagnosis: (1) delivery delivered Your Health Problems Are: delivery Report Symptoms to Your Doctor -Temperate above 100.5 degrees -Redness, of incision or excessive or foul smelling drainage -Unusual pain or calf pain -Increased vaginal bleeding -Painful or difficulty urinating -Feelings of extreme sadness or anxiety after 2 weeks Goals to Promote Your Health * To prevent worsening of your condition and complications * To maintain your health at the optimal level Directions to Meet Your Goals Take your medications as prescribed Follow your dietary instruction Follow activity as directed Ensure plenty of rest for recovery Drink fluids for hydration Keep your appointments as scheduled Take your immunizations and boosters as scheduled If your symptoms worsen call your PCP, if no PCP go to Urgent Care Center or Emergency Room Smoking is Dangerous to Your Health. Avoid second hand smoke Call the 24-hour crisis hotline for domestic abuse at Vanessa Bullock March 02, 2017 10:03
[2017-03-02] MEDS: IRON SUCROSE INJ 200 MG in SODIUM CHLORIDE 0.9% INJ 100 ML IV SCH (10:44)
[2017-03-02 19:00] VITALS: BP 119/72; PULSE 103; RESP 20; TEMP 98.1
[2017-03-02] MEDS: SODIUM CHLORIDE 0.9% FLUSH 10 ML FLUSH IV FLUSH SCH (21:00)
[2017-03-03] MEDS: oxyCODONE/ACETAMINOPHEN 5 MG/325 MG TAB PO PRN ×3 (01:46→14:33)
[2017-03-03] MEDS: IBUPROFEN 600 MG TAB PO PRN ×3 (01:46→14:33)
[2017-03-03 03:00] VITALS: BP 97/47; PULSE 18; PULSE 85; RESP 18; TEMP 98
[2017-03-03 04:00] VITALS: RESP 18
[2017-03-03 05:00] VITALS: RESP 18
[2017-03-03 06:00] VITALS: RESP 18
[2017-03-03 07:30] VITALS: BP 111/67; PULSE 90; RESP 16; TEMP 97.7
[2017-03-03] MEDS: POLYSACCHARIDE IRON COMPLEX 150 MG CAP PO SCH (08:22)
[2017-03-03] MEDS: DOCUSATE SODIUM 50 MG/SENNA 8.6 MG TAB PO PRN (08:22)
[2017-03-03 10:28] LABS: MEAN CORPUSCULAR HEMOGLOBIN 23.2 PG (27.0-34.0); MEAN CORPUSCULAR HGB CONC 31.8 % (32.0-36.0); PLATELET COUNT 168 TH/MM3 (150-450); RED BLOOD COUNT 2.88 MIL/MM3 (4.00-5.30); RED CELL DISTRIBUTION WIDTH 18.3 % (11.6-17.2); WHITE BLOOD COUNT 6.9 TH/MM3 (4.0-11.0)
[2017-03-03 10:32] LABS: REVIEW FLAG FINAL
[2017-03-03] MEDS: IRON SUCROSE INJ 200 MG in SODIUM CHLORIDE 0.9% INJ 100 ML IV SCH (11:11)
--- NOTE | 2017-03-03 15:58 | HHI.OB ---
Subjective Post Operative Day: 3 Remarks Doing well, quite tired. No chest pain, no SOB, no dizziness. Has plenty of help at home. Wants to go home. Objective Vitals/I&O Vital Signs Date Time Temp Pulse Resp B/P Pulse Ox O2 Delivery O2 Flow Rate FiO2 03/03/17 07:30 97.7 90 16 03/03/17 07:30 111/67 03/03/17 06:00 18 03/03/17 05:00 18 03/03/17 04:00 18 03/03/17 03:00 85 03/03/17 03:00 98.0 03/03/17 03:00 18 18 97/47 03/03/17 02:50 18 03/03/17 02:50 18 03/02/17 21:00 18 03/02/17 19:00 98.1 103 20 119/72 Result Diagram: 03/03/17 1012 Objective Remarks GENERAL: Well-nourished, well-developed patient. CARDIOVASCULAR: Regular rate and rhythm without murmurs, gallops, or rubs. RESPIRATORY: Breath sounds equal bilaterally. No accessory muscle use. ABDOMEN/GI: Abdomen soft, non-tender, bowel sounds present. Incision: dressing Clean, dry and intact. Fundus: Firm, non-tender at umbilicus. GENITOURINARY: Light to moderate bleeding. EXTREMITIES: No cyanosis or edema, non-tender, without signs of DVT. Medications and IVs Current Medications Medications (Trade) Dose Ordered Sig/Nomi Route Start Time Stop Time Status Last Admin (Zofran Inj) 4 mg Q6H PRN IV 02/28/17 11:30 (fentaNYL INJ) 50 mcg Q1H PRN IV PUSH 02/28/17 11:30 (fentaNYL INJ) 100 mcg Q1H PRN IV PUSH 02/28/17 11:30 Mineral Oil 10 ml 10 ml UNSCH PRN TOPICAL 02/28/17 11:30 Oxytocin 500 ml @ 0 mls/hr TITRATE IV 02/28/17 11:30 02/28/17 12:27 (fentaNYL 2MCG-BUPIV 0.125% INJ) 100 ml @ 0 mls/hr TITRATE EPIDURAL 02/28/17 17:45 (NS Flush) 2 ml BID IV FLUSH 02/28/17 21:00 03/02/17 21:00 (NS Flush) 2 ml UNSCH PRN IV FLUSH 02/28/17 20:45 (Mylicon Chew) 80 mg QID PRN PO 02/28/17 20:45 (Motrin) 600 mg Q6H PRN PO 02/28/17 20:45 03/03/17 14:33 (Percocet 5-325 Mg) 1 tab Q4H PRN PO 02/28/17 20:45 03/03/17 14:33 (Percocet 5-325 Mg) 2 tab Q4H PRN PO 02/28/17 20:45 03/02/17 20:00 (Ally-Colace) 2 tab Q12H PRN PO 02/28/17 20:45 03/03/17 08:22 (Zofran Inj) 4 mg Q6H PRN IV PUSH 02/28/17 20:45 (Nu-Iron) 150 mg Q12HR PO 03/01/17 09:00 03/03/17 08:22 Assessment/Plan Problem List: (1) Labor and delivery, indication for care (2) Asthma (3) Petit-mal epilepsy (4) delivery delivered Assessment and Plan POD #3 Severe anemia ,, stable and asymptomatic. Again discussed option of blood transfusion, got two doses of venofer. Will call or come in for heavy bleeding, SOB, Chest pain Explained to family in detail about helping her and that she needed some rest. Plan to d/c home. Discharge Planning home now Elizabeth Goldberg MD March 03, 2017 15:58
== END 2017-03-03 16:12 | disposition home or self-care (01) | DRG 765 ==
LOC: H2EB 10:55 → H1EA 21:52
PROVIDERS: ADMIT Obstetrics & Gynecology; ATTEND Obstetrics & Gynecology
PROC: 10D00Z1 Extraction of Products of Conception, Low, Open Approach (ICD-10-PCS; principal; 2017-02-28)
PROC: 3E0R3CZ (ICD-10-PCS; 2017-02-28)
PROC: 00HU33Z Insertion of Infusion Device into Spinal Canal, Percutaneous Approach (ICD-10-PCS; 2017-02-28)
DX: O32.9XX0 Maternal care for malpresentation of fetus, unspecified, not applicable or unspecified (principal); O99.354 Diseases of the nervous system complicating childbirth; Z37.0 Single live birth; O99.02 Anemia complicating childbirth; J45.20 Mild intermittent asthma, uncomplicated; D64.9 Anemia, unspecified; O33.9 Maternal care for disproportion, unspecified; O76 Abnormality in fetal heart rate and rhythm complicating labor and delivery; O99.52 Diseases of the respiratory system complicating childbirth; G40.409 Other generalized epilepsy and epileptic syndromes, not intractable, without status epilepticus; Z3A.39 39 weeks gestation of pregnancy; O77.0 Labor and delivery complicated by meconium in amniotic fluid
CPT/HCPCS: 59025; 81001; 82805; 85007; 85025; 85027; 86850; 86900; 86901; 88307; 90715; 96372; J0690; J1756; J2274; J2590; J3010; J7120